=== PATIENT | female | born 1975 | race Two or more races ===

== ENCOUNTER 2020-08-05 07:15 | Inpatient (IN) | payer OTHER ==
[~2020-08-05] VITALS: Ht 170.2 cm; Wt 76.7 kg
[~2020-08-05 07:15] MED LIST: FIORICET 50-301 EACH PO; TYLENOL-CODEINE1 TAB PO
[2020-08-15] MEDS ORDERED: HYOSCYAMINE0.125 M1 SL (07:59)
[2020-08-15] MEDS ORDERED: IBUPROFEN800 MG PO (08:00)
[2020-08-15] MEDS ORDERED: CODE1TAB37 PO (08:01)
== END 2020-08-15 10:40 | disposition home or self-care (01) | DRG 743 ==
LOC: OB/GYN 08-11 07:15 → O/R 08-11 11:37 → OB/GYN 08-11 16:15 → SURH 08-12 16:54
PROVIDERS: ADMIT Obstetrics & Gynecology; ATTEND Obstetrics & Gynecology
PROC: 0DNW0ZZ Release Peritoneum, Open Approach (ICD-10-PCS; 2020-08-11)
PROC: 0TJB8ZZ Inspection of Bladder, Via Natural or Artificial Opening Endoscopic (ICD-10-PCS; 2020-08-11)
PROC: 0UT90ZZ Resection of Uterus, Open Approach (ICD-10-PCS; principal; 2020-08-11 16:15)
DX: D25.1 Intramural leiomyoma of uterus (principal); N73.6 Female pelvic peritoneal adhesions (postinfective); D25.2 Subserosal leiomyoma of uterus; N72 Inflammatory disease of cervix uteri; N94.5 Secondary dysmenorrhea; N81.11 Cystocele, midline; N92.1 Excessive and frequent menstruation with irregular cycle